=== PATIENT | female | born 2000 | race Caucasian/White ===

== ENCOUNTER 2021-04-22 16:40 | Emergency (ER) | payer OTHER ==
[~2021-04-22 16:40] MED LIST: FLOMAX 0.4 MG0.4 MG PO; NORCO 5-325 TA1 EACH PO; ZOFRAN8 MG PO
[2021-04-22 17:37] LABS: BASOPHIL 0.4 % (0-2); EOSINOPHIL 1.8 % (0-5); HCT 42.6 % (37.0-47.0); HGB 14.5 g/dl (12.5-16.0); MCH 32.7 pg (25.0-31.0); MCV 96.2 fL (78.0-100.0); MONOCYTE 9.7 % (0-12); MPV 8.9 fL (6.0-9.5); NEUTROPHIL 60.7 % (41-80); NRBC 0; PLT 278 K/uL (150-400); RBC 4.43 M/uL (4.20-5.40); RDW 11.7 % (11.5-14.0); WBC 4.5 K/uL (4.0-10.5)
[2021-04-22 17:42] LABS: BILIRUBIN NEGATIVE (NEGATIVE); BLOOD NEGATIVE Ery/uL (NEGATIVE); CLARITY CLEAR (CLEAR); COLOR YELLOW (YELLOW); GLUCOSE (U) NORMAL (NORMAL); LEUKOCYTES TRACE Leu/uL (NEGATIVE); NITRITE NEGATIVE (NEGATIVE); PROTEIN NEGATIVE (NEGATIVE); SPECIFIC GRAVITY 1.025 (1.001-1.030); UROBILINOGEN 0.2 mg/dL (0.2-1.0)
[2021-04-22 17:55] LABS: AMORPHOUS PHOSPHATE CRYSTALS TRACE; BACTERIA TRACE; URINARY RBC RARE
[2021-04-22 17:58] LABS: ALBUMIN 4.3 g/dL (3.4-5.0); BILIRUBIN - TOTAL 0.6 mg/dL (0.2-1.0); BUN/CREAT RATIO (CALC) 18.5 RATIO; CREATININE 0.81 mg/dL (0.51-0.95); GLOBULIN (CALCULATION) 3.3 g/dL; POTASSIUM 4.3 mmol/L (3.5-5.1); TOTAL PROTEIN 7.6 g/dL (6.4-8.2)
[2021-04-26 22:08] LABS: CHLAMYDIA TRACHOMATIS, NAA Negative (Negative); NEISSERIA GONORRHOEAE, NAA Negative (Negative)
== END 2021-04-23 00:25 | disposition home or self-care (01) ==
LOC: FER 16:40
PROVIDERS: Emergency Medicine
DX: N39.0 Urinary tract infection, site not specified (principal); N89.8 Other specified noninflammatory disorders of vagina
CPT/HCPCS: 36415; 80053; 81001; 82150; 83690; 85025; 87210; 87491; 87591; J1885